=== PATIENT | male | born 1945 | race Hispanic/Latino ===

== ENCOUNTER → 2017-11-01 | Outpatient (CLI) | payer MEDICARE ==
[~2017-11-01] MED LIST: AEC81 PO; CYCL10TA7 PO; FLUO20CA30 PO; KRIL1CAP19 PO; LISI40TA4 PO; REGADENOSON 0.4 MG/5 ML PF SYG IVP SCH; SIMV40TA5 PO; VITA1CAP PO
== END | disposition home or self-care (01) ==
LOC: SHCH 08:39
PROVIDERS: ATTEND Internal Medicine Cardiovascular Disease
DX: R06.00 Dyspnea, unspecified (principal)
CPT/HCPCS: 78452; 93017; 96374; A9500 ×2; J2785

== ENCOUNTER → 2019-01-10 | Outpatient (CLI) | payer MEDICARE ==
[~2019-01-10] MED LIST changes: -REGADENOSON 0.4 MG/5 ML PF SYG IVP SCH
== END | disposition home or self-care (01) ==
LOC: RAH 14:26
PROVIDERS: ATTEND Internal Medicine Cardiovascular Disease
DX: M54.16 Radiculopathy, lumbar region (principal)
CPT/HCPCS: 72148

== ENCOUNTER → 2020-10-13 | Outpatient (CLI) | payer OTHER ==
[~2020-10-13] MED LIST changes: +SIMV-46 PO; -SIMV40TA5 PO
== END | disposition home or self-care (01) ==
LOC: SHCH 13:19
PROVIDERS: ATTEND Internal Medicine Cardiovascular Disease
DX: I51.7 Cardiomegaly (principal); R01.1 Cardiac murmur, unspecified
CPT/HCPCS: 93306; 93356

== ENCOUNTER → 2020-10-17 | Outpatient (CLI) | payer OTHER ==
[~2020-10-17] VITALS: Ht 180.3 cm; Wt 125.2 kg
[~2020-10-17] MED LIST changes: +REGADENOSON 0.4 MG/5 ML PF SYG IVP SCH
== END | disposition home or self-care (01) ==
LOC: SHCH 08:07
PROVIDERS: ATTEND Internal Medicine Cardiovascular Disease
DX: R07.9 Chest pain, unspecified (principal); I25.10 Atherosclerotic heart disease of native coronary artery without angina pectoris
CPT/HCPCS: 78452; 93017; 96374; A9500 ×2; J2785

== ENCOUNTER → 2020-10-31 | Outpatient (CLI) | payer OTHER ==
[~2020-10-31] VITALS: Ht 180.3 cm; Wt 126.2 kg
[~2020-10-31] MED LIST changes: +ASPI-1026 PO; +LISI10TA24 PO; -LISI40TA4 PO; +LISI40TA9 PO; +MVI PO; +RANO10003 PO; -REGADENOSON 0.4 MG/5 ML PF SYG IVP SCH; +SIMV80TA91 PO; +SODIUM CHLORIDE 0.9% 1000ML 1,000 ML IV SCH; +VITA1CAP85 PO; +VITAMIN D PO
[2020-10-31 13:40] LABS: BASOPHILS % (AUTO) 0.3 % (0.0-5.0); HEMATOCRIT 41.6 % (42-54); LYMPHOCYTES % (AUTO) 33.4 % (21.0-51.0); MEAN CORPUSCULAR HEMOGLOBIN 32.7 pg (27.0-33.0); MEAN CORPUSCULAR HGB CONC 33.4 g/dL (32.0-36.0); MEAN CORPUSCULAR VOLUME 97.9 fL (79-99); MONOCYTES % (AUTO) 7.2 % (3.0-13.0); NEUTROPHILS % (AUTO) 56.7 % (40.0-77.0); PLATELET COUNT (AUTO) 171 K/uL (130-400); RED BLOOD CELL COUNT(AUTO) 4.25 MIL/uL (4.50-6.20); RED CELL DISTRIBUTION WIDTH 12.2 % (11.0-15.5); WHITE BLOOD COUNT (AUTO) 7.7 K/uL (4.8-10.8)
[2020-10-31 13:52] LABS: CREATININE 1.2 mg/dL (0.5-1.5); POTASSIUM 4.2 mmol/L (3.5-5.1)
[2020-10-31 13:55] LABS: INR 1.05 (0.85-1.15); PROTHROMBIN TIME 11.4 SEC (9.6-11.6)
[2020-10-31 13:57] LABS: PARTIAL THROMBOPLASTIN TIME 26.6 SEC (26.3-35.5)
[2020-10-31 14:31] LABS: APPEARANCE,URINE Clear (CLEAR); BILIRUBIN,URINE Negative (NEGATIVE); COLOR,URINE Dark Yellow (YELLOW); GLUCOSE, URINE (UA) Negative (NEGATIVE); KETONES,URINE Trace mg/dL (NEGATIVE); LEUKOCYTE ESTERASE ,URINE Small (NEGATIVE); NITRATE,URINE Negative (NEGATIVE); OCCULT BLOOD,URINE Negative (NEGATIVE); PROTEIN,URINE Negative (NEGATIVE)
[2020-10-31 14:46] LABS: BACTERIA,URINE Few /HPF (None Seen); MUCUS,URINE Few LPF (None Seen); RBC,URINE 0-1 /HPF (0-1); SQUAMOUS EPITHELIAL CELL,UR Rare /HPF (0-2)
[2020-11-03 09:55] VITALS: BP 118/61
== END | disposition home or self-care (01) ==
LOC: DAH 10:00 → EDSTATUS 13:00
PROVIDERS: ATTEND Internal Medicine Cardiovascular Disease
DX: Z01.812 Encounter for preprocedural laboratory examination (principal); I25.10 Atherosclerotic heart disease of native coronary artery without angina pectoris; I44.0 Atrioventricular block, first degree; R00.1 Bradycardia, unspecified; I21.9 Acute myocardial infarction, unspecified
CPT/HCPCS: 36415; 71045; 80048; 81001; 85025; 85610; 85730; 93005; A6260

== ENCOUNTER 2020-11-21 08:50 | Day surgery (SDC) | payer OTHER ==
[2020-11-20 13:32] VITALS: BP 122/73
[~2020-11-21] VITALS: Ht 177.8 cm; Wt 124.9 kg
[2020-11-21] VITALS (9 sets, daily range): BP systolic 117–152; BP diastolic 58–76
[~2020-11-21 08:50] MED LIST changes: -AEC81 PO; -CYCL10TA7 PO; -KRIL1CAP19 PO; -LISI40TA9 PO; +PHARMACY COMMUNICATION MISC SCH; -SIMV-46 PO; -SODIUM CHLORIDE 0.9% 1000ML 1,000 ML IV SCH; -VITA1CAP PO
[2020-11-21 09:40] LABS: BASOPHILS % (AUTO) 0.2 % (0.0-5.0); EOSINOPHILS % (AUTO) 0.5 % (0.0-8.0); HEMATOCRIT 39.1 % (42-54); LYMPHOCYTES % (AUTO) 36.2 % (21.0-51.0); MEAN CORPUSCULAR HEMOGLOBIN 32.3 pg (27.0-33.0); MEAN CORPUSCULAR HGB CONC 33.5 g/dL (32.0-36.0); MEAN CORPUSCULAR VOLUME 96.5 fL (79-99); MONOCYTES % (AUTO) 6.6 % (3.0-13.0); NEUTROPHILS % (AUTO) 55.8 % (40.0-77.0); PLATELET COUNT (AUTO) 171 K/uL (130-400); RED BLOOD CELL COUNT(AUTO) 4.05 MIL/uL (4.50-6.20); RED CELL DISTRIBUTION WIDTH 12.2 % (11.0-15.5); WHITE BLOOD COUNT (AUTO) 5.8 K/uL (4.8-10.8)
[2020-11-21 09:49] LABS: CREATININE 1.2 mg/dL (0.5-1.5); POTASSIUM 4.2 mmol/L (3.5-5.1)
[2020-11-21 09:53] LABS: INR 1.05 (0.85-1.15); PROTHROMBIN TIME 11.4 SEC (9.6-11.6)
[2020-11-21 09:54] LABS: PARTIAL THROMBOPLASTIN TIME 26.9 SEC (26.3-35.5)
[2020-11-21] MEDS ORDERED: SODIUM CHLORIDE 0.9% 1000ML 1,000 ML IV ONE (10:19)
[2020-11-21] MEDS ORDERED: SODIUM CHLORIDE 0.9% 500ML 500 ML IV SCH (10:30)
[2020-11-21 12:15] LABS: APPEARANCE,URINE Clear (CLEAR); BILIRUBIN,URINE Negative (NEGATIVE); COLOR,URINE Dark Yellow (YELLOW); GLUCOSE, URINE (UA) Negative (NEGATIVE); KETONES,URINE Negative (NEGATIVE); LEUKOCYTE ESTERASE ,URINE Small (NEGATIVE); NITRATE,URINE Negative (NEGATIVE); OCCULT BLOOD,URINE Negative (NEGATIVE); PH,URINE 5.5 (5.0-8.0); PROTEIN,URINE Negative (NEGATIVE); UROBILINOGEN,URINE 0.2 mg/dL (0.2-1.0)
[2020-11-21] MEDS ORDERED: LISI40TA9 PO (12:30)
[2020-11-21 12:38] LABS: BACTERIA,URINE Few /HPF (None Seen); RBC,URINE 0-1 /HPF (0-1)
[2020-11-21 12:39] LABS: SQUAMOUS EPITHELIAL CELL,UR Rare /HPF (0-2)
[2020-11-21] MEDS ORDERED: SODIUM BICARB 50MEQ 50ML VIAL 50 ML ONE (13:06)
[2020-11-21] MEDS ORDERED: MIDAZOLAM HCL 1 MG/ML 2ML VIAL ONE ×2 (13:07→13:43)
[2020-11-21] MEDS ORDERED: LIDOCAINE HCL 2% 20ML ONE (13:07)
[2020-11-21] MEDS ORDERED: NITROGLYCERIN 2 MG/VIAL VIAL IV ONE (13:07)
[2020-11-21] MEDS ORDERED: HEPARIN SODIUM 1000UNIT/ML 10ML VIAL ONE (13:07)
[2020-11-21] MEDS ORDERED: IOHEXOL-350 75 ML VIAL IV ONE (13:07)
[2020-11-21] MEDS ORDERED: IOHEXOL-350 50ML VIAL IV ONE (13:07)
[2020-11-21] MEDS ORDERED: MEPERIDINE-PF 25 MG/ML SYG ONE ×2 (13:07→13:43)
[2020-11-21] MEDS ORDERED: IOHEXOL 350 MG/ML 100ML INFUS..BTL IV ONE (13:07)
[2020-11-21] MEDS ORDERED: NICARDIPINE HCL 25 MG/10 ML ML IV ONE (13:35)
[2020-11-21] MEDS ORDERED: ATROPINE SULFATE 0.1 MG/ML 10 ML SYG IVP ONE (13:54)
[2020-11-21] MEDS ORDERED: SODIUM CHLORIDE 0.9% 1000ML 1,000 ML IV SCH (14:30)
== END 2020-11-21 18:15 | disposition home or self-care (01) ==
LOC: CLH 08:50 → DAH 08:50 → CLH 18:15
PROVIDERS: ATTEND Internal Medicine Cardiovascular Disease
DX: I25.119 Atherosclerotic heart disease of native coronary artery with unspecified angina pectoris (principal); I10 Essential (primary) hypertension; E78.5 Hyperlipidemia, unspecified; F41.9 Anxiety disorder, unspecified; F43.10 Post-traumatic stress disorder, unspecified; Z82.49 Family history of ischemic heart disease and other diseases of the circulatory system; Z87.891 Personal history of nicotine dependence; Z72.89 Other problems related to lifestyle; Z79.01 Long term (current) use of anticoagulants; Z79.82 Long term (current) use of aspirin; Z79.899 Other long term (current) drug therapy; Z95.5 Presence of coronary angioplasty implant and graft
CPT/HCPCS: 36415; 80048; 81001; 85025; 85610; 85730; 93458; A4215; A4216; A4221; A4222; A4223 ×3; A4606; A4663; A6206; A6402; C1769; C1894; J0461; J1644 ×2; J2175 ×2; J2250 ×2; J3490 ×4; J7030; Q9965; Q9967 ×2; 96360; 96361; 99156; 99157

== ENCOUNTER → 2021-06-24 | Outpatient (CLI) | payer OTHER ==
[~2021-06-24] MED LIST changes: -LISI10TA24 PO; +LISI40TA9 PO; -PHARMACY COMMUNICATION MISC SCH; +TICA90TA PO
== END | disposition home or self-care (01) ==
LOC: RAH 10:53
PROVIDERS: ATTEND Internal Medicine Gastroenterology
DX: R13.12 Dysphagia, oropharyngeal phase (principal); R63.30 Feeding difficulties, unspecified
CPT/HCPCS: 74230; 92611

== ENCOUNTER → 2022-03-12 | Outpatient (CLI) | payer OTHER | END | disposition home or self-care (01) | LOC: RAH 09:21 | PROVIDERS: ATTEND Internal Medicine Gastroenterology | DX: R13.10 Dysphagia, unspecified (principal) | CPT/HCPCS: 74240 ==

== ENCOUNTER 2023-04-15 08:57 | Observation (INO) | payer OTHER ==
[~2023-04-15] VITALS: Ht 172.7 cm; Wt 123.8 kg
[2023-04-15 09:19] LABS: BASOPHILS % (AUTO) 0.5 % (0.0-5.0); EOSINOPHILS % (AUTO) 0.9 % (0.0-8.0); HEMATOCRIT 41.6 % (42-54); LYMPHOCYTES % (AUTO) 40.2 % (21.0-51.0); MEAN CORPUSCULAR HGB CONC 33.9 g/dL (32.0-36.0); MEAN CORPUSCULAR VOLUME 97.4 fL (79-99); MONOCYTES % (AUTO) 6.4 % (3.0-13.0); NEUTROPHILS % (AUTO) 51.4 % (40.0-77.0); PLATELET COUNT (AUTO) 176 K/uL (130-400); RED BLOOD CELL COUNT(AUTO) 4.27 MIL/uL (4.50-6.20); RED CELL DISTRIBUTION WIDTH 12.5 % (11.0-15.5); WHITE BLOOD COUNT (AUTO) 6.4 K/uL (4.8-10.8)
[2023-04-15 09:30] LABS: CREATININE 1.3 mg/dL (0.5-1.5); POTASSIUM 4.3 mmol/L (3.5-5.1)
[2023-04-15 09:34] LABS: ALBUMIN 3.7 g/dL (3.5-5.0); MAGNESIUM 1.9 mg/dL (1.80-2.40); TOTAL PROTEIN, SERUM 6.8 g/dL (6.0-8.3)
[2023-04-15 09:55] LABS: B-TYPE NATRIURETIC PEPTIDE 66 pg/mL (0-100)
[2023-04-15 11:28] LABS: APPEARANCE,URINE CLEAR (CLEAR); BILIRUBIN,URINE NEGATIVE (NEGATIVE); COLOR,URINE LIGHT-YELLOW (YELLOW); GLUCOSE, URINE (UA) NEGATIVE (NEGATIVE); KETONES,URINE NEGATIVE (NEGATIVE); LEUKOCYTE ESTERASE ,URINE NEGATIVE Leu/uL (NEGATIVE); NITRATE,URINE NEGATIVE (NEGATIVE); OCCULT BLOOD,URINE NEGATIVE (NEGATIVE); PROTEIN,URINE NEGATIVE (NEGATIVE); UROBILINOGEN,URINE 0.2 mg/dL (0.2-1.0)
[2023-04-15] MEDS ORDERED: PRAV80TA21 PO (15:47)
[2023-04-15] MEDS ORDERED: RANO500T2 PO (15:47)
[2023-04-15] MEDS ORDERED: FOLI0.4T6 PO (15:47)
[2023-04-15] MEDS ORDERED: LISI20TA24 PO (15:47)
[2023-04-15] MEDS ORDERED: VITA-328 PO (15:47)
[2023-04-15] MEDS ORDERED: ONDANSETRON 4MG INJ IVP PRN (16:00)
[2023-04-15] MEDS ORDERED: ACETAMINOPHEN 500 MG TABLET PO PRN (16:00)
[2023-04-15] MEDS ORDERED: PANTOPRAZOLE 40 MG/VIAL IVP SCH (16:00)
[2023-04-15] MEDS ORDERED: MORPHINE 2 MG SYG IVP PRN (16:00)
[2023-04-15] MEDS ORDERED: NITROGLYCERIN 0.4 MG SL TAB SL PRN (16:00)
[2023-04-15 16:10] LABS: HEMOGLOBIN A1C 5.3 % (4.0-6.0)
[2023-04-15 16:23] LABS: THYROID STIMULATING HORMONE 1.73 uIU/mL (0.36-3.74)
[2023-04-15 19:07] LABS: INR 0.95 (0.85-1.15); PROTHROMBIN TIME 11.1 SEC (9.6-11.6)
[2023-04-15 19:08] LABS: PARTIAL THROMBOPLASTIN TIME 23.9 SEC (26.3-35.5)
[2023-04-15 19:14] LABS: CREATINE KINASE, TOTAL 94 U/L (21-232); MYOGLOBIN 32 ng/mL (10-92)
[2023-04-15] MEDS: RANOLAZINE 500 MG TAB.SR.12H PO SCH (20:32)
[2023-04-15] MEDS ORDERED: NON-FORMULARY MEDICATION 1 EACH (Pravastatin Sodium 80 MG) PO SCH (21:00)
[2023-04-15] MEDS ORDERED: ATORVASTATIN 20 MG TABLET PO SCH (21:00)
[2023-04-16] VITALS (9 sets, daily range): BP systolic 104–132; BP diastolic 47–74; PULSE 50–58; RESP 16–20; O2SAT 96–98
[2023-04-16] MEDS: LISINOPRIL 20 MG TABLET PO SCH (08:51)
[2023-04-16] MEDS: VITAMIN B COMPLEX 1 CAPSULE PO SCH (08:52)
[2023-04-16] MEDS: FOLIC ACID 1 MG TABLET PO SCH (08:52)
[2023-04-16] MEDS ORDERED: VITAMIN B COMPLEX PO SCH (09:00)
[2023-04-16] MEDS: RANOLAZINE 500 MG TAB.SR.12H PO SCH ×2 (09:00→19:50)
[2023-04-16] MEDS ORDERED: REGADENOSON 0.4 MG/5 ML PF SYG IVP SCH (12:00)
[2023-04-16] MEDS ORDERED: ATORVASTATIN 20 MG TABLET PO SCH (21:00)
[2023-04-17 03:34] VITALS: BP 113/49; PULSE 54; RESP 20
[2023-04-17 08:27] VITALS: BP 118/63; PULSE 53; RESP 18
[2023-04-17] MEDS ORDERED: CLOPIDOGREL 75MG TAB PO SCH (09:00)
[2023-04-17] MEDS ORDERED: ASPIRIN 81MG CHEW TAB PO SCH (09:00)
[2023-04-17] MEDS ORDERED: PANTOPRAZOLE 40 MG TAB DR PO SCH (09:00)
[2023-04-17] MEDS ORDERED: FLUOXETINE HCL 20 MG CAPSULE PO SCH (09:00)
[2023-04-17] MEDS: VITAMIN B COMPLEX 1 CAPSULE PO SCH (09:23)
[2023-04-17] MEDS: FOLIC ACID 1 MG TABLET PO SCH (09:24)
[2023-04-17] MEDS: RANOLAZINE 500 MG TAB.SR.12H PO SCH (09:24)
[2023-04-17] MEDS: LISINOPRIL 20 MG TABLET PO SCH (09:25)
[2023-04-17] MEDS ORDERED: ASPI-1005 PO (09:29)
[2023-04-17] MEDS ORDERED: CLOP-31 PO (09:29)
== END 2023-04-17 10:58 | disposition home or self-care (01) ==
LOC: EDH 08:57 → EDHIP 15:31 → 2AH 22:57
PROVIDERS: ADMIT Internal Medicine; ATTEND Internal Medicine
DX: R07.2 Precordial pain (principal); Z20.822 Contact with and (suspected) exposure to COVID-19; I25.10 Atherosclerotic heart disease of native coronary artery without angina pectoris; E66.01 Morbid (severe) obesity due to excess calories; I10 Essential (primary) hypertension; E78.00 Pure hypercholesterolemia, unspecified; R00.2 Palpitations; I44.0 Atrioventricular block, first degree; I44.4 Left anterior fascicular block; F40.240 Claustrophobia; F43.10 Post-traumatic stress disorder, unspecified; G47.33 Obstructive sleep apnea (adult) (pediatric); Z79.899 Other long term (current) drug therapy; Z95.5 Presence of coronary angioplasty implant and graft; Z79.82 Long term (current) use of aspirin; Z68.41 Body mass index [BMI] 40.0-44.9, adult; Z98.890 Other specified postprocedural states; Z87.891 Personal history of nicotine dependence
CPT/HCPCS: 96374; 99285; 83036; 84443; 82550; 83735; 83874; 84484 ×3; 80061; 80053; 83880; 85025; 85610; 85730; 81003; 36415; 87635; 71045; 93005 ×2; 93017; 78452; 93306; 93356; G0378 ×39; C9113; J2785; A9500 ×2

== ENCOUNTER → 2023-05-04 | Outpatient (CLI) | payer OTHER ==
[~2023-05-04] MED LIST changes: +ASPI-1005 PO; -ASPI-1026 PO; +CLOP-31 PO; +FOLI0.4T6 PO; +IOHEXOL 350 MG/ML 100ML INFUS..BTL IV ONE; +LISI20TA24 PO; -LISI40TA9 PO; -MVI PO; +PRAV80TA21 PO; -RANO10003 PO; +RANO500T2 PO; -SIMV80TA91 PO; -TICA90TA PO; +VITA-328 PO; -VITA1CAP85 PO; -VITAMIN D PO
== END | disposition home or self-care (01) ==
LOC: RAH 13:17
PROVIDERS: ATTEND Internal Medicine Cardiovascular Disease
DX: R07.9 Chest pain, unspecified (principal)
CPT/HCPCS: 75574; Q9967

== ENCOUNTER 2024-07-09 18:58 | Emergency (ER) | payer OTHER ==
[~2024-07-09] VITALS: Ht 177.8 cm; Wt 119.3 kg
[~2024-07-09 18:58] MED LIST changes: -IOHEXOL 350 MG/ML 100ML INFUS..BTL IV ONE
[2024-07-09] MEDS: Solu-medROL 125MG VIAL IVP ONE (20:36)
[2024-07-09] MEDS: FAMOTIDINE 20MG VIAL IV ONE (20:36)
[2024-07-09] MEDS: DiphenhydrAMINE HCL 50 MG/ML VIAL IV ONE (20:36)
[2024-07-09] MEDS ORDERED: DIPH50 PO (21:39)
[2024-07-09] MEDS ORDERED: FAMO-136 PO (21:39)
[2024-07-09 21:46] VITALS: BP 135/65; PULSE 75; RESP 18; TEMP 97.5; O2SAT 96
== END 2024-07-09 21:55 | disposition home or self-care (01) ==
LOC: EDH 18:58
DX: T78.40XA Allergy, unspecified, initial encounter (principal); L50.0 Allergic urticaria; E78.00 Pure hypercholesterolemia, unspecified; I10 Essential (primary) hypertension; Z79.02 Long term (current) use of antithrombotics/antiplatelets; Z79.82 Long term (current) use of aspirin; Z79.899 Other long term (current) drug therapy; Z95.5 Presence of coronary angioplasty implant and graft; X58.XXXA Exposure to other specified factors, initial encounter
CPT/HCPCS: 99284; 96374; 96375; J1200; J3490; J2919

== ENCOUNTER → 2025-01-02 | Outpatient (CLI) | payer OTHER ==
[~2025-01-02] MED LIST changes: +DIPH50 PO; +FAMO-136 PO
--- NOTE | 2025-01-03 07:13 | HMCSR ---
APPROVED REPORT EXAM: Two-dimensional and M-mode echocardiogram with Doppler and color Doppler. INDICATION ICD: R06.02 Shortness of breath 2D Dimensions RVDd3.8 cmLVEF(%)88.7 (>50%)LVED Vol(simp.)108.0 mL IVSd0.7 (0.7-1.1cm)FS(%)59 %LVES Vol(simp.)42.0 mL LVDd5.0 (3.8-5.6cm)LA (2D)4.9 (1.6-4.0cm)LVEF(%, simp.)61 % PWd1.0 (0.7-1.1cm)Ao Root(2D)3.4 (2.0-3.7cm)LA ESV INDEX (BP)25.78 mL/m2 LVDs2.0 (2.5-4.0cm)LVOT diam2.0 (1.8-2.4cm) IVC diam1.7 cm M-Mode Dimensions EPSS0.5 cm LA (MM)5.1 (1.6-4.0cm) Ao Root(MM)2.6 (2.0-3.7cm) Aortic Valve AoV Vmax1.2 m/[place]in[place] Peak GR5.7 mmHgLVOT Vmax1.1 m/s AoV VTI0.3 mAo Mean GR3.4 mmHgLVOT VTI0.24 m ANITHA (VMAX)2.6 cm2AVA (VTI) 2.6 cm2 Mitral Valve MV E Vmax79.1 cm/sDECEL Mlzf477 ms MV A Vmax56.2 cm/sP 1/2 T77 ms E/A ratio1.4MVA (PHT)2.8 cm2 TDI E/E' Medial9.9E/E' Lateral6.1 Medial E' Peak V8.00 cm/sLateral E' Peak V13.00 cm/s Pulmonary Valve PV Vmax1.0 m/s Tricuspid Valve TR Vmax1.7 m/sRAP (EST) 8 fyDcRYPI54.8 mmHg TR Peak GR11.8 mmHg Left Ventricle The left ventricle is normal size. There is normal LV segmental wall motion. There is normal left holland tricular wall thickness. LVEF is 60-65%. No left ventricle thrombus noted on this study. The left holland tricular diastolic function is normal. Right Ventricle The right ventricle is normal size. The right ventricular systolic function is normal. Atria The left atrium size is normal. The right atrium is borderline dilated. Aortic Valve The aortic valve is normal in structure. No aortic regurgitation is present. There is no aortic valvu lar stenosis. Mitral Valve The mitral valve is normal in structure. There is trace of mitral valve regurgitation noted. There is no mitral valve stenosis. Tricuspid Valve The tricuspid valve is normal in structure. There is trace of tricuspid valve regurgitation noted. Pulmonic Valve The pulmonary valve is normal in structure. There is no pulmonic valvular regurgitation. Great Vessels The aortic root is normal in size. IVC is not well visualized. Pericardium Trace, loculated posterior pericardial effusion effusion. Other Information Quality : Adequate Conclusion The left ventricle is normal size. LVEF is 60-65%. The right ventricle is normal size. The left atrium size is normal. The aortic valve is normal in structure. No aortic regurgitation is present. There is no aortic valvular stenosis. The mitral valve is normal in structure. There is trace of mitral valve regurgitation noted. There is no mitral valve stenosis. There is trace of tricuspid valve regurgitation noted. There is no pulmonic valvular regurgitation. The aortic root is normal in size. IVC is not well visualized. Trace, loculated posterior pericardial effusion effusion.
== END | disposition home or self-care (01) ==
LOC: RAH 13:42
PROVIDERS: ATTEND Internal Medicine Cardiovascular Disease
DX: R06.02 Shortness of breath (principal)
CPT/HCPCS: 93306

== ENCOUNTER → 2025-08-21 | Outpatient (CLI) | payer OTHER ==
[~2025-08-21] MED LIST changes: -DIPH50 PO; +DIPH50CA38 PO; -FLUO20CA30 PO; +FLUO20CA95 PO; +IOHEXOL 350 MG/ML 100ML INFUS..BTL IV ONE; -PRAV80TA21 PO; +PRAV80TA75 PO
--- NOTE | 2025-08-22 19:12 | CARDIOLOGY ---
RAD REPORT: [facility] CT ANGIO RADIOLOGY REPORT: CORONARY CT ANGIOGRAPHY DATE: Aug 22, 2025 QUALITY: Excellent CLINICAL HISTORY AND INDICATION: [ CAD, chest pain ] TECHNIQUE: After obtaining a preliminary system planning engineer image, contrast imaging performed on an [employer] [id number] scanner. A dedicated, limited window, coronary imaging protocol was used, with single breath-hold, retrospective ECG gating, and automated arrhythmia rejection. 100 cc of low osmolar contrast agent: Omnipaque 350 was delivered via a 18-gauge IV catheter in the right antecubital fossa, using a power injector and followed by 60 cc of normal saline bolus as a chaser. Collimated images were reformatted at 0.5 mm intervals, and sent to an offline independent workstation for interpretation, using 3D anatomic reconstructions: Curved multiplanar reconstructions, maximum intensity projections, and multiplanar imaging. No metoprolol was administered prior to scanning due to low baseline heart rate. 0.4 mg SL nitroglycerin was given. CORONARY ARTERY DESCRIPTIONS: The coronary arteries arise in normal position. Left main coronary artery: Normal caliber vessel that bifurcates into the LAD and LCx. Distal left main stenosis 40-50%. Left anterior descending coronary artery: Normal caliber vessel and gives rise to diagonal and septal branches. DWAINE in the proximal LAD. There is mixed plaque beyond the distal stent strut edge with 60-70% stenosis vs metal blooming artifact. Proximal diagonal 1 artery is heavily calcified with 50-60% stenosis. Left circumflex coronary artery: Small caliber, nondominant and not well visualized due to ectopy. Right coronary artery: Large, dominant vessel giving rise to the PL and PDA branches. Proximal RCA 20-30% stenosis. PDA is a small vessel. CAD-RADs: Moderate to severe stenosis. Thoracic Aorta: Normal diameter. Sharon De Jesus MD Cardiovascular Disease [facility] SHARON DE JESUS MD Aug 22, 2025 19:11
== END | disposition home or self-care (01) ==
LOC: RAH 07:53
PROVIDERS: ATTEND Internal Medicine Cardiovascular Disease
DX: I25.10 Atherosclerotic heart disease of native coronary artery without angina pectoris (principal); I95.1 Orthostatic hypotension; I10 Essential (primary) hypertension
CPT/HCPCS: 75574; Q9967